=== PATIENT | male | born 1955 | race Caucasian/White ===

== ENCOUNTER 2023-08-20 05:15 | Day surgery (SDC) | payer OTHER ==
[~2023-08-20] VITALS: Ht 172.7 cm; Wt 93.0 kg
[2023-08-20] MEDS ORDERED: ACETAMINOPHEN 500 MG TABLET ONE (05:45)
[2023-08-20] MEDS ORDERED: CELECOXIB 100 MG CAPSULE ONE (05:45)
[2023-08-20] MEDS ORDERED: SCOPOLAMINE HYDROBROMIDE 1 MG PATCH .72 H (TRANSDERM-SCOP) TD ONE (05:47)
[2023-08-20] MEDS ORDERED: oxyCODONE HCL 10 MG TAB.ER.12H PO ONE (05:48)
[2023-08-20] MEDS ORDERED: GABAPENTIN 300 MG CAPSULE ONE (05:48)
[2023-08-20] MEDS: GABAPENTIN 300 MG CAPSULE PO ONE (06:14)
[2023-08-20] MEDS: CELECOXIB 100 MG CAPSULE PO ONE (06:14)
[2023-08-20] MEDS: ACETAMINOPHEN 500 MG TABLET PO ONE (06:14)
[2023-08-20] MEDS: SCOPOLAMINE HYDROBROMIDE 1 MG PATCH .72 H (TRANSDERM-SCOP) TD ONE (06:14)
[2023-08-20] MEDS ORDERED: CEFAZOLIN SOD 2 GM in D5W 50 ML IV ONE (07:00)
[2023-08-20] MEDS ORDERED: DEXAMETHASONE SOD PHOSPHATE 4 MG/ML VIAL ONE (07:19)
[2023-08-20] MEDS ORDERED: KETAMINE HCL IN 0.9 % NACL 50 MG/5 ML SYRINGE ONE (07:20)
[2023-08-20] MEDS: oxyCODONE HCL 10 MG TAB.ER.12H PO ONE (07:20)
[2023-08-20] MEDS ORDERED: MIDAZOLAM HCL 2 MG/2 ML VIAL (VERSED) ONE (07:20)
[2023-08-20] MEDS ORDERED: PROPOFOL DRIP 100 ML IV ONE (07:24)
[2023-08-20] MEDS ORDERED: BISACODYL 10 MG/SUPPOSITORY RC PRN (07:30)
[2023-08-20] MEDS ORDERED: METOCLOPRAMIDE HCL 10 MG/2 ML VIAL IVP PRN (07:30)
[2023-08-20] MEDS ORDERED: LACTULOSE 20 GM/30 ML UDC PO PRN (07:30)
[2023-08-20] MEDS ORDERED: DIPHENHYDRAMINE HCL 25 MG CAPSULE PO PRN (07:30)
[2023-08-20] MEDS ORDERED: ONDANSETRON HCL 4 MG/2 ML VIAL IVP PRN ×2 (08:30→11:45)
[2023-08-20] MEDS ORDERED: HYDROmorphone 1 MG/ML INJ. CARTRIDGE IVP PRN ×6 (08:30→11:00)
[2023-08-20] MEDS ORDERED: NALOXONE HCL 0.4 MG/ML AMP (NARCAN) IVP PRN (08:30)
[2023-08-20] MEDS ORDERED: hydrALAZINE HCL 20 MG/ML VIAL IV PRN (08:30)
[2023-08-20] MEDS ORDERED: TAMSULOSIN HCL 0.4 MG CAP PO SCH (10:10)
[2023-08-20] MEDS ORDERED: traMADol HCL HCL 50 MG TABLET (ULTRAM) PO PRN (11:00)
[2023-08-20] MEDS ORDERED: oxyCODONE HCL 5 MG TABLET PO PRN ×2 (11:00)
[2023-08-20] MEDS ORDERED: LORATADINE 10 MG TABLET PO PRN (11:00)
[2023-08-20 11:13] VITALS: BP_SYST 186; PULSE 56; RESP 18; TEMP 97.4; O2SAT 98
[2023-08-20] MEDS ORDERED: SENNOSIDES/DOCUSATE SODIUM 1 TAB TABLET(SENOKOT-S) PO ONE (11:15)
[2023-08-20] MEDS ORDERED: ceFAZolin SODIUM 2 GM in D5W 50 ML IV SCH (11:15)
[2023-08-20] MEDS ORDERED: KETOROLAC TROMETHAMINE 10 MG TABLET (TORADOL) PO SCH (14:00)
[2023-08-20] MEDS ORDERED: ACETAMINOPHEN 500 MG TABLET PO SCH (14:00)
[2023-08-20] MEDS ORDERED: SENNOSIDES/DOCUSATE SODIUM 1 TAB TABLET(SENOKOT-S) PO SCH (21:00)
[2023-08-21] MEDS ORDERED: ASPIRIN 81 MG TAB.CHEW PO SCH (09:00)
[2023-08-21] MEDS ORDERED: CELECOXIB 200 MG CAPSULE PO SCH (11:00)
== END 2023-08-20 14:00 | disposition home or self-care (01) ==
LOC: SMU 05:15 → SDS 05:15
PROVIDERS: ATTEND Student in an Organized Health Care Education/Training Program
DX: M17.12 Unilateral primary osteoarthritis, left knee (principal); M25.562 Pain in left knee; G89.29 Other chronic pain; K21.9 Gastro-esophageal reflux disease without esophagitis; I10 Essential (primary) hypertension; E78.5 Hyperlipidemia, unspecified; E03.9 Hypothyroidism, unspecified; Z96.651 Presence of right artificial knee joint; Z98.890 Other specified postprocedural states; Z79.899 Other long term (current) drug therapy
CPT/HCPCS: 87081; 27447; 97162; 64447; 73560; 97110; 97530; 97116; 88305; 88311; J3490 ×2; J0690; J0696; J1100; J1200; J3465; J2704; J3370; J7060 ×2; J7120; C1776 ×3; 96379